=== PATIENT | female | born 1970 | race Caucasian/White ===

== ENCOUNTER 2016-09-10 14:10 | Emergency (ER) | payer OTHER ==
--- NOTE | ~2016-09-10 | CT2 ---
[facility] A Service of [facility] RADIOLOGY TEXT RESULTS PATIENT: ELLEN MURPHY LOCATION: SED : 70 UNIT #: [id number] AGE: [address]: Jose E Paul MD SEX: F ORDER DR: [id number] [place] [id number] E MR#: [id number] Acc #: [id number] NAME: ELLEN MURPHY. : 1970 SEX: F STUDY DATE/TIME: 09/10/2016 16:22 UNIT: SED ROOM: STUDY DESCRIPTION: CT Abd and Pelv W Cont Attending Physician: Jose E Paul M.D. Ordering Physician: Jose E Paul M.D. Primary Care Physician: Jalil Landa Aprn MEDICAL IMAGING REPORT This report is preliminary unless electronic signature is present. EXAM CT abdomen and pelvis with contrast. INDICATION Abdominal pain and diarrhea for few months. TECHNIQUE CT scan of the abdomen and pelvis was performed following the administration of oral and IV contrast. Coronal and sagittal reformatted images were obtained. This CT exam was performed with one or more of the following radiation dose reduction techniques: automatic exposure control, adjustment of mA and/or kV according to patient size, and iterative reconstruction. COMPARISON Comparison is made with 10/06/2007. FINDINGS The lung bases are clear. There is fatty infiltration of the liver. The gallbladder is unremarkable. The spleen is unremarkable. The left kidney is unremarkable. There is a 8 mm nonobstructing stone in the lower pole of the right kidney. The adrenal glands are unremarkable. The pancreas is unremarkable. There is a small fat-containing umbilical hernia. No evidence for bowel obstruction. PELVIS: No free fluid. The colon is unremarkable. The appendix nonvisualized. The bone windows demonstrate degenerative change at L5-S1. IMPRESSION 1. There is an 8 mm stone in the lower pole of the right kidney. 2. Fatty filtration of the liver. [facility] A Service of [facility] RADIOLOGY TEXT RESULTS PATIENT: ELLEN MURPHY LOCATION: SED : 70 UNIT #: [id number] AGE: [address]: Jose E Paul MD SEX: F ORDER DR: 3. Small fat-containing umbilical hernia. Dictated by... Phoenix Arenas M.D. THIS IS AN ELECTRONICALLY VERIFIED REPORT Phoenix Arenas M.D. at 09/12/2016 10:31 AM KATIA/musa TD: 09/10/2016 21:47 JOB #: [id number] MEDICAL IMAGING REPORT Page 1 of 1
[~2016-09-10 14:10] MED LIST: ATENOLOL PO; CIPRO PO; EFFEXOR PO; HUMALOG MI100 UNIT/1 SUBQ; HYDROXYZINE HCL50 MG PO; KEFLEX500 M1 PO; LISINOPRIL PO; LISINOPRIL10 MG PO; METFORMIN HCL1000 M1 PO; NEURONTIN600 MG DOB; TOPROL XL 50 MG50 MG PO; TYLOX 5/500 CAP1 CAP PO; ULTRAM PO; ZANTAC150 M1 PO; ZOLOFT PO
[2016-09-10] MEDS ORDERED: CIPRO PO (14:35)
[2016-09-10] MEDS ORDERED: ACYCLOVIR PO (14:37)
[2016-09-10 15:02] LABS: URINE SOURCE CLEAN CATCH
[2016-09-10 15:05] LABS: BASOPHIL# 0.1 X10e3 (0-0.3); BASOPHIL% 0.5 % (0-2.5); EOSINOPHIL# 0.2 X10e3 (0-0.7); EOSINOPHIL% 2.2 % (0.0-7.0); HEMATOCRIT 35.2 % (35.0-45.0); HEMOGLOBIN 11.1 gm/dL (12.0-16.0); LYMPHOCYTE% 30.8 % (17.0-45.0); MEAN CELL VOLUME 76.1 FL (83-96); MEAN CORPUSCULAR HGB CONC 31.6 g/dL (30-36); MEAN PLATELET VOLUME 6.5 FL (6.5-11.5); MONOCYTE# 0.5 X10e3 (0-1.0); MONOCYTE% 5.6 % (3.0-12.0); NEUTROPHIL# 5.9 X10e3 (1.5-7.1); NEUTROPHIL% 60.9 % (40-75); PLATELET COUNT 424 X10e3 (140-420); RED BLOOD COUNT 4.62 X10e (3.90-5.30); RED CELL DISTRIBUTION WIDTH 15.7 % (11.0-15.5); WHITE BLOOD COUNT 9.6 X10e3 (4.0-10.5)
[2016-09-10 15:06] LABS: MICRO INDICATED? YES; URINE APPEARANCE SL CLOUDY; URINE BILIRUBIN NEG (NEG); URINE BLOOD TRACE-INTACT (NEG); URINE COLOR YELLOW; URINE GLUCOSE 100 MG/DL (NORM); URINE KETONE TRACE (NEG); URINE LEUKOCYTE ESTERASE 2+ (NEG); URINE NITRATE NEG (NEG); URINE PH 5.5 (5-8); URINE PROTEIN NEG (NEG); URINE SPECIFIC GRAVITY >=1.030 (1.003-1.035); URINE UROBILINOGEN 0.2 MG/DL (NORM)
[2016-09-10 15:07] LABS: CULTURE INDICATED? YES; URINE BACTERIA 2+ (NEG); URINE SQUAMOUS EPITHELIAL CELL MANY /[HPF]; URINE WBC 50-100 /[HPF] (0-5)
[2016-09-10 15:11] LABS: DIFF IND NO
[2016-09-10 15:24] LABS: ALBUMIN SERUM 3.6 g/dL (3.5-5.0); ALKALINE PHOSPHATASE 90 U/L (32-92); ALT (SGPT) 35 U/L (10-40); AMYLASE 15 U/L (0-46); AST (SGOT) 65 U/L (10-42); BILIRUBIN,TOTAL 0.1 mg/dL (0.2-2.0); BLOOD UREA NITROGEN 13 mg/dL (9-23); BUN/CREATININE RATIO 18.57; CALCIUM SERUM 9.1 mg/dL (8.4-10.2); CARBON DIOXIDE 24 mmol/L (22-31); CHLORIDE 101 mmol/L (100-111); CREATININE SERUM 0.7 mg/dL (0.6-1.4); GLOM FILT RATE Estimated 104.6 mL/min (>60); GLUCOSE FASTING 168 mg/dL (70-110); LIPASE 45 U/L (22-51); POTASSIUM 4.3 mmol/L (3.5-5.1); PROTEIN TOTAL SERUM 7.5 g/dL (6.0-8.3); SODIUM 133 mmol/L (135-145)
[2016-09-10 15:25] LABS: BILIRUBIN, DIRECT <0.1 mg/dL (0.0-0.2)
== END 2016-09-10 17:12 | disposition home or self-care (01) ==
LOC: SED 14:10
PROVIDERS: Emergency Medicine
DX: N30.90 Cystitis, unspecified without hematuria (principal); E11.9 Type 2 diabetes mellitus without complications; K21.9 Gastro-esophageal reflux disease without esophagitis; E78.5 Hyperlipidemia, unspecified; I10 Essential (primary) hypertension; Z79.4 Long term (current) use of insulin; Z79.899 Other long term (current) drug therapy; Z88.2 Allergy status to sulfonamides; Z88.8 Allergy status to other drugs, medicaments and biological substances
CPT/HCPCS: 36415; 74177; 80048; 80076; 81003; 82150; 83690; 85025; 87086; 99284; Q9967